=== PATIENT | male | born 1985 | race Caucasian/White ===

== ENCOUNTER 2016-07-30 15:56 | Emergency (ER) | payer SELFPAY ==
[~2016-07-30] VITALS: Ht 170.2 cm; Wt 76.0 kg
[2016-07-30] MEDS ORDERED: KETOROLAC 60MG/2ML VIAL IM ONE (16:30)
[2016-07-30 16:44] VITALS: BP 128/82
== END 2016-07-30 18:05 | disposition home or self-care (01) ==
LOC: ER 16:02
DX: S09.90XA Unspecified injury of head, initial encounter (principal); M54.2 Cervicalgia; V89.2XXA Person injured in unspecified motor-vehicle accident, traffic, initial encounter; Y93.89 Activity, other specified; Y92.410 Unspecified street and highway as the place of occurrence of the external cause; Y99.8 Other external cause status
CPT/HCPCS: 72050; 96372; 99284; J1885; Z7610